=== PATIENT | male | born 1975 | race Caucasian/White ===

== ENCOUNTER 2016-04-19 18:27 | Emergency (ER) | payer BC ==
[~2016-04-19] VITALS: Ht 182.9 cm; Wt 103.6 kg
[~2016-04-19 18:27] MED LIST: NOHOMEMEDS
[2016-04-19 22:32] LABS: INFLUENZA A VIRAL ANTIGEN NEGATIVE; INFLUENZA B VIRAL ANTIGEN NEGATIVE
[2016-04-19 22:41] LABS: POINT-OF-CARE METER ID UU13113778
[2016-04-19] MEDS ORDERED: VIBRAMYCIN100 MG PO (22:46)
[2016-04-19 23:04] VITALS: BP 100/64
== END 2016-04-19 23:06 | disposition home or self-care (01) ==
LOC: EME 18:27
PROVIDERS: Physician Assistant Medical
DX: J18.9 Pneumonia, unspecified organism (principal); R50.9 Fever, unspecified; M79.1 Myalgia; F17.200 Nicotine dependence, unspecified, uncomplicated
CPT/HCPCS: 71020; 82948; 87502; 99281; 99284